=== PATIENT | male | born 1980 | race Asian ===

== ENCOUNTER 2022-02-07 13:09 | Emergency (ER) | payer OTHER ==
[~2022-02-07] VITALS: Ht 185.4 cm; Wt 104.3 kg
[2022-02-07 13:18] VITALS: BP 170/99
[2022-02-07] MEDS ORDERED: PRED50TA PO (13:30)
== END 2022-02-07 13:41 | disposition home or self-care (01) ==
LOC: ER 13:33
DX: M54.50 Low back pain, unspecified (principal); I10 Essential (primary) hypertension; E11.9 Type 2 diabetes mellitus without complications; Z98.890 Other specified postprocedural states; Z79.899 Other long term (current) drug therapy